=== PATIENT | female | born 1985 | race Caucasian/White ===

== ENCOUNTER 2024-01-21 08:35 | Observation (INO) | payer BC ==
[~2024-01-21] VITALS: Ht 159.4 cm; Wt 81.0 kg
[~2024-01-21 08:35] MED LIST: ALLE180T33 PO; BOTO10VL IM; CRES5TAB PO; MELA10TA14 PO; PEPPERMINT PO; RIZA10TA64 PO; THERTAB52 PO; VENTAER INH; ZOLO100T PO; collagen PO
[2024-01-21] MEDS ORDERED: ROCURONIUM BROMIDE 50MG/5ML VIAL As Ordered ONE (10:48)
[2024-01-21] MEDS ORDERED: propofoL 200 MG/20 ML VIAL As Ordered ONE (10:48)
[2024-01-21] MEDS ORDERED: ONDANSETRON 4MG 2ML VIAL As Ordered ONE (10:48)
[2024-01-21] MEDS ORDERED: LIDOCAINE 2% 100MG/5ML SDV (FOR ANES.) As Ordered ONE (10:48)
[2024-01-21] MEDS ORDERED: SUGAMMADEX SODIUM 500 MG/5 ML VIAL (BRIDION) As Ordered ONE (10:48)
[2024-01-21] MEDS ORDERED: fentaNYL 250 MCG/5 ML INJECTION As Ordered ONE (10:54)
[2024-01-21] MEDS ORDERED: MIDAZOLAM INJ 2MG/2ML VIAL As Ordered ONE (10:54)
[2024-01-21] MEDS ORDERED: ROSU5TAB40 PO (11:45)
[2024-01-21] MEDS ORDERED: HOME MED LIST COMPLETE! XX SCH (11:50)
[2024-01-21] MEDS: CLINDAMYCIN 900 MG in IV 1 EA IV ONE (12:45)
[2024-01-21] MEDS: CLINDAMYCIN 900MG/50ML PREMIX BAG As Ordered ONE (13:16)
[2024-01-21] MEDS: HEPARIN SOD (PORCINE) 5000UNITS/ML 1ML VIAL/SYRINGE SQ ONE (13:19)
[2024-01-21] MEDS ORDERED: ACETAMINOPHEN 1000MG 100ML IV BAG As Ordered ONE (13:21)
[2024-01-21] MEDS: LIDOCAINE 1% MDV 20ML VIAL As Ordered ONE (13:48)
[2024-01-21] MEDS: GENTAMICIN SULF 80MG/2ML VIAL As Ordered ONE (13:48)
[2024-01-21] MEDS: EPINEPHrine INJ 1 MG/ML 1ML AMP As Ordered ONE (13:49)
[2024-01-21] MEDS ORDERED: HYDROmorphone HCL 2MG/ML 1ML VIAL As Ordered ONE (13:49)
[2024-01-21] MEDS ORDERED: PHENYLephrine 500MCG 5ML (100MCG/ML) SYRINGE As Ordered ONE (17:29)
[2024-01-21] MEDS ORDERED: fentaNYL 100 MCG/2 ML INJECTION IV PRN (17:45)
[2024-01-21] MEDS ORDERED: ONDANSETRON 4MG 2ML VIAL IV PRN (18:10)
[2024-01-21] MEDS ORDERED: ALBUTEROL 90 MCG/ACT 8GM HFA INHALER INH PRN (18:10)
[2024-01-21] MEDS ORDERED: PERCOCET 5MG/325MG TAB PO PRN (18:10)
[2024-01-21] MEDS: oxyCODONE 5MG TAB PO PRN (18:16)
[2024-01-21] MEDS: ONDANSETRON 4MG 2ML VIAL IV PRN (18:37)
[2024-01-21 19:45] VITALS: BP 133/83; TEMP 97.9; O2SAT 100
[2024-01-21 20:15] VITALS: BP 139/86; TEMP 98.1; O2SAT 96
[2024-01-21] MEDS: LR 1,000 ML IV SCH (20:18)
[2024-01-21 20:44] VITALS: BP 142/89; TEMP 98.4; O2SAT 94
[2024-01-21 21:45] VITALS: BP 139/88; TEMP 98.6; O2SAT 93
[2024-01-21] MEDS: ACETAMINOPHEN TAB 650MG DOSE (2X325MG) PO PRN (22:19)
[2024-01-21 22:45] VITALS: BP 139/86; TEMP 98.1; O2SAT 93
[2024-01-21 23:45] VITALS: BP 138/88; TEMP 98.6; O2SAT 93
[2024-01-22 00:44] VITALS: BP 126/71; TEMP 98.8; O2SAT 94
[2024-01-22] MEDS: traMADol 50 MG TAB PO PRN (03:01)
[2024-01-22 05:08] VITALS: BP 125/71; TEMP 98.6; O2SAT 95
[2024-01-22] MEDS: ROSUVASTATIN 10 MG TAB (CRESTOR) PO SCH (08:26)
[2024-01-22] MEDS: SERTRALINE 100 MG TAB PO SCH (08:27)
[2024-01-22] MEDS: FEXOFENADINE 60MG TAB PO SCH (08:27)
[2024-01-22 09:04] VITALS: BP 125/70; TEMP 98.1; O2SAT 99
[2024-01-22] MEDS ORDERED: TRAM50TA2 PO (09:26)
== END 2024-01-22 10:40 | disposition home or self-care (01) ==
LOC: M SDC 08:35 → M RR INP 18:07 → M MS5PR 19:40
PROVIDERS: ADMIT Plastic Surgery Surgery of the Hand; ATTEND Plastic Surgery Surgery of the Hand
DX: N62 Hypertrophy of breast (principal); E88.1 Lipodystrophy, not elsewhere classified; M54.6 Pain in thoracic spine; M54.2 Cervicalgia; Z88.1 Allergy status to other antibiotic agents; Z91.018 Allergy to other foods; Z88.8 Allergy status to other drugs, medicaments and biological substances; J45.909 Unspecified asthma, uncomplicated; D64.9 Anemia, unspecified; F41.9 Anxiety disorder, unspecified; F32.A Depression, unspecified
CPT/HCPCS: 15877; 19318; 88305; C9290; J0131; J0171; J0665; J0737; J1100; J1170; J1580; J2250; J2371; J2405; J3010